=== PATIENT | male | born 1995 | race Caucasian/White ===

== ENCOUNTER 2021-11-12 03:12 | Day surgery (SDC) | payer BC, SELFPAY ==
[2021-11-12 03:15] VITALS: BP 131/89; PULSE 96; RESP 18; TEMP 37.4; O2SAT 96; BMI 22.1
--- NOTE | 2021-11-12 03:15 | W.ED.GENADLT ---
HPI - General Adult General: Chief complaint: General Medical Stated complaint: TONSILS BLEEDING Time Seen by Provider: 11/12/21 03:14 Source: patient and EMS Mode of arrival: EMS Limitations: no limitations History of Present Illness: 26-year-old male who had a tonsillectomy yesterday at noon states that tonight he woke up with bleeding. He states he is coughed up some blood and some bleeding from his mouth. He has some slight pain denies any worsening improving factors denies any vomiting. Associated symptoms: Deny chest pain, dyspnea, headache(s), nausea, rash or vomiting Review of Systems Const: Denies: fever(s), chills, body aches or change in appetite Eyes: Denies: blurry vision or eye discomfort ENMT: Denies: throat pain or dental pain Card: Denies: chest pain Resp: Denies: dyspnea GI: Denies: abdominal pain, nausea, vomiting or diarrhea : Denies: dysuria Musc: Denies: neck pain or back pain Skin/Breast: Denies: rash Neuro: Denies: headache(s) Psych: Denies: depression Antoine/Lymph: Denies: easy bruising All/Imm: Denies: urticaria Physical Exam Const: COMMON NORMALS: no acute distress, patient oriented x3 and healthy appearing HENMT: COMMON NORMALS: normocephalic and atraumatic HEAD & SCALP: normocephalic and atraumatic Eye: COMMON NORMALS: Equal, round and reactive pupils present and EOMs intact bilaterally PUPIL: Yes Equal, round and reactive pupils present Neck/C-Spine: COMMON NORMALS: full ROM and supple Chest: COMMONS NORMALS: normal inspection of the chest and normal palpation of entire chest wall Resp: COMMON NORMALS: normal respiratory effort, No retractions, No use of accessory muscles and clear to auscultation bilaterally AUSCULTATION: clear to auscultation bilaterally Cardio: COMMON NORMALS: regular rate, regular rhythm and No murmurs present (Cardio) RATE: regular rate RHYTHM: regular rhythm GI: COMMON NORMALS: Normal to inspection, nondistended, normoactive bowel sounds present, Soft to palpation, non-tender and no masses PALPATION: Yes Soft to palpation Extremity: COMMON NORMALS: normal to inspection and full ROM Neuro: COMMON NORMALS: patient oriented x3, moves all extremities and no focal motor deficits Psych: COMMON NORMALS: mental status grossly normal, Normal thought process present and cooperative THOUGHT PROCESS: Normal thought process present Skin: COMMON NORMALS: no rashes or lesions noted and no wounds GENERAL SKIN EXAM: no rashes or lesions noted Course Vital Signs: Vital signs: Vital Signs Temperature 99.3 F 11/12/21 03:15 Pulse Rate 96 11/12/21 03:15 Respiratory Rate 18 11/12/21 03:15 Blood Pressure 131/89 11/12/21 03:15 Pulse Oximetry 96 11/12/21 03:15 [facility] - General Adult Medical Decision Making Patient presents with post tonsillectomy hemorrhage patient is seen by Dr. Barrera in the ER and is going to come back to the OR at this time. He has been stable in the ER. Lab Data : 11/12/21 03:19 Laboratory Results WBC 15.5 10^3/uL (4.0-10.0) H 11/12/21 03:19 RBC 5.62 10^6/uL (4.1-5.3) H 11/12/21 03:19 Hgb 17.1 g/dL (11.7-16.6) H 11/12/21 03:19 Hct 47.5 % (42.0-52.0) 11/12/21 03:19 MCV 84.5 fl (80-94) 11/12/21 03:19 MCH 30.4 pg (28.0-34.0) 11/12/21 03:19 MCHC 36.0 g/dL (30.0-36.0) 11/12/21 03:19 RDW 11.8 % (12.1-15.1) L 11/12/21 03:19 Plt Count 264 10^3/cmm (130-400) 11/12/21 03:19 MPV 9.6 fL (7.4-10.4) 11/12/21 03:19 Neut % (Auto) 91.2 % 11/12/21 03:19 Lymph % (Auto) 5.4 % 11/12/21 03:19 [place] % (Auto) 2.7 % 11/12/21 03:19 Eos % (Auto) 0.1 % 11/12/21 03:19 Baso % (Auto) 0.2 % 11/12/21 03:19 Neut # (Auto) 14.12 10^3/uL (1.8-7.7) H 11/12/21 03:19 Lymph # (Auto) 0.8 10^3/uL (0.8-4.8) 11/12/21 03:19 [place] # (Auto) 0.4 10^3/uL (0.2-0.9) 11/12/21 03:19 Eos # (Auto) 0.0 10^3/uL (0.0-0.8) 11/12/21 03:19 Baso # (Auto) 0.0 10^3/uL (0.0-0.1) 11/12/21 03:19 Nucleated RBC % (auto) 0 % 11/12/21 03:19 Nucleated RBCs # 0.0 /100WBC 11/12/21 03:19 Discharge Plan Discharge Patient Disposition: Admitted As Inpatient Clinical Impression: Post-tonsillectomy hemorrhage Condition: Stable Coding Level of Care Code ED [employer] for Chg Fwd Exam Comprehensive
[2021-11-12 03:23] LABS: Basophils % 0.2 %; Eosinophils % 0.1 %; Hematocrit 47.5 % (42.0-52.0); Hemoglobin 17.1 g/dL (11.7-16.6); Lymphocytes # 0.8 10^3/uL (0.8-4.8); Lymphocytes % 5.4 %; Mean Corpuscular Hemoglobin 30.4 pg (28.0-34.0); Mean Corpuscular Volume 84.5 fl (80-94); Mean Platelet Volume 9.6 fL (7.4-10.4); Monocytes # 0.4 10^3/uL (0.2-0.9); Monocytes % 2.7 %; Neutrophils # 14.12 10^3/uL (1.8-7.7); Neutrophils % 91.2 %; Nucleated Red Blood Cells % 0 %; Platelet Count 264 10^3/cmm (130-400); Red Blood Count 5.62 10^6/uL (4.1-5.3); Red Cell Distribution Width 11.8 % (12.1-15.1); White Blood Count 15.5 10^3/uL (4.0-10.0)
--- NOTE | 2021-11-12 04:58 | P.CONIM_ITS ---
Providers/Reason For Consult Consulting Physician/Specialty*: Jacobo Barrera MD Otolaryngology, Head & Neck Surgery Reason for Consult*: Post tonsillectomy bleeding Requesting Physician: [facility] ER Attending Physician: Jacobo Barrera MD Primary Care Provider: Zheng Lundberg DO History of Present Illness History of Present Illness Louie Ferrera is a 26 year old male who is POD #1 s/p bilateral tonsillectomy who noted spontaneous oral bleeding this morning. The patient last ate last evening. He is o/w doing well. Review of Systems General: Reports: 10 or more systems reviewed and unremarkable except in HPI and below Medications/Allergies Allergies Allergy/AdvReac Type Severity Reaction Status Date / Time No Known Allergies Allergy Verified 11/12/21 03:20 Hydrocodone (7.5/325)/15mL Elixer Vitals/I&O/Wt Last Vital Signs Temp 99.3 F 11/12/21 03:15 Pulse 96 11/12/21 03:15 Resp 18 11/12/21 03:15 BP 131/89 11/12/21 03:15 Pulse Ox 96 11/12/21 03:15 Weight last 48 hrs Weight 68.039 kg Physical Exam Const: COMMON NORMALS: no acute distress and patient oriented x3 HENMT: COMMON NORMALS: normocephalic and atraumatic HEAD & SCALP: normocephalic and atraumatic MOUTH: Normal oral and palatal mucosa present and other (There is a clot in the inferior left tonsillar fossa) Eye: COMMON NORMALS: EOMs intact bilaterally and conjunctivae normal CONJUNCTIVA: Yes conjunctivae normal Neck/C-Spine: COMMON NORMALS: no lymphadenopathy Chest: COMMONS NORMALS: normal inspection of the chest Resp: COMMON NORMALS: normal respiratory effort Cardio: COMMON NORMALS: regular rate, regular rhythm and No murmurs present (Cardio) RATE: regular rate RHYTHM: regular rhythm GI: INSPECTION: Yes normal to inspection Extremity: COMMON NORMALS: normal to inspection Neuro: COMMON NORMALS: patient oriented x3 and CN's II-XII intact bilaterally Psych: COMMON NORMALS: mental status grossly normal Data : 11/12/21 03:19 A&P Assessment and plan (1) Post-tonsillectomy hemorrhage: Impression: 26 yo wm who is POD #1 s/p tonsillectomy with post tonsillectomy bleeding Plan: - NPO - To the OR for surgical control of post tonsillectomy bleeding - I was unable to control with [id number] - Risks and potential complications explained Status: Acute Consult Attestations Medical Necessity Statement: I was contacted to treat post tonsillectomy bleeding. Coding Level of Care Code Acute [employer] for Chg Fwd Diagnoses Post-tonsillectomy hemorrhage J95.830
--- NOTE | 2021-11-12 05:56 | ANES.PREANE2 ---
Pre-Anesthetic Assessment Height/Weight: Height 1.75 m Weight 68.039 kg Temp Pulse Resp BP Pulse Ox 99.3 F 96 18 131/89 96 11/12/21 03:15 11/12/21 03:15 11/12/21 03:15 11/12/21 03:15 11/12/21 03:15 Operation Date: 11/12/21 06:00 Proposed Procedures p Tonsillectomy Postop Bleed Control(Not Applicable) - Jacobo Barrera MD Familial anesthetic complications: None Was Beta Enoc taken within 24 hours: N/A Was Clonidine taken within 24 hours: N/A Last intake: full stomach (swallowing blood) Social No alcohol and No tobacco Exam alert, oriented x 3, clear to auscultation bilaterally and regular rate & rhythm Airway Submandibular: within normal limits Cervical ROM: within normal limits Mallampati: Class I Dentition: full History/ROS No significant complaints Pulmonary Tonsil rebleed CV/HEM None reported None reported Hepatic None reported GI None reported Metabolic None reported Musc/skel None reported Neuropsych None reported Anesthetic Plan ASA status: 1E Anesthesia: Anesthesia Evaluation and General Other: We discussed risk and benefits of general anesthesia including PONV, sore throat (sometimes severe), corneal abrasion, positioning and peripheral nerve injuries, life threatening allergic reaction, post operative ICU admission requiring prolonged intubation, stroke, heart attack, , and rare incidences of recall. Patient consents to proceed with general anesthesia. Risk of > 500 ml blood loss (7ml/kg in children): No Other Pertinent Information Late entry due to urgency of case. Patient seen and evaluated prior to surgery. Medications/Allergies Allergies Allergy/AdvReac Type Severity Reaction Status Date / Time No Known Allergies Allergy Verified 11/12/21 03:20 Data Anesthesia : 11/12/21 03:19 Short CBC 11/12/21 Range/Units 03:19 WBC 15.5 H (4.0-10.0) 10^3/uL Hgb 17.1 H (11.7-16.6) g/dL Hct 47.5 (42.0-52.0) % MCV 84.5 (80-94) fl Plt Count 264 (130-400) 10^3/cmm Neut % (Auto) 91.2 % Neut # (Auto) 14.12 H (1.8-7.7) 10^3/uL Cardiac Studies: No Data to Display
--- NOTE | 2021-11-12 06:16 | PM.OP ---
Operative Report Date of procedure: November 12, 2021 Pre-op diagnosis: Post tonsillectomy bleeding Post-op diagnosis: same Post-op findings: Left tonsillar fossa bleeding - midpole Procedure done: Surgical control of post tonsillectomy bleeding Implants: None Specimens removed/disposition: None Pathology: none sent Surgeon: Jacobo Barrera Anesthesia: General Estimated blood loss (mL): 25 IV fluids (mL): 700 Complications: None Findings: Left midpole tonsil bleeding Condition: stable Disposition: PACU Brief History: 26 yo wm who is POD #1 s/p bilateral tonsillectomy with new onset oral bleeding uncontrolled by conservative measures. Procedure: The patient was identified in the preoperative holding area and was taken to the operating where he was placed on the operating table in the supine position. Anesthesia was obtained with general endotracheal anesthesia and the table was then turned 90 degrees patient's left. A McIvor mouthgag was placed atraumatically in the patient's oral cavity and he was suspended in the Charity position. The patient's oral cavity was evacuated with suction and the patient was found to have a left midpole tonsil bleed. The tonsil bleeding was controlled with a combination of suture ligature and Coblation and bipolar cautery. Once this was accomplished, the patient's oral cavity was irrigated with copious amount of normal saline. The wounds were reinspected hemostasis which was found to be adequate. The stomach was then evacuated with an OG tube, and the procedure was terminated. Control of the patient was returned to anesthesia where he underwent an uneventful reversal of anesthesia and extubation and was taken to the recovery in stable condition. There were no operative or anesthetic complications
[2021-11-12 06:18] VITALS: BP 112/74; PULSE 107; RESP 18; TEMP 36.1; O2SAT 95
[2021-11-12 06:23] VITALS: BP 126/69; PULSE 97; RESP 18; O2SAT 96
[2021-11-12 06:27] VITALS: BP 123/68; PULSE 107; RESP 18; TEMP 36.7; O2SAT 96
[2021-11-12 06:31] VITALS: BP 111/73; PULSE 98; RESP 18; TEMP 37.1; O2SAT 98
--- NOTE | 2021-11-12 06:38 | ANE.PACU2 ---
Inpatient post-anesthesia follow up: Airway intact: Yes Vital signs: Temperature 98.8 F Pulse Rate 98 Respiratory Rate 18 Blood Pressure 111/73 Pulse Oximetry 98 Oxygen Delivery Me thod Room Air Oxygen Flow Rate Fraction of Inspir ed Oxygen Hydration adequate: Yes Nausea and vomiting: No Pain level: 3 Mental status: Baseline
[2021-11-12 06:55] VITALS: BP 123/83; PULSE 100; RESP 16; O2SAT 97
== END 2021-11-12 06:58 | disposition home or self-care (01) ==
LOC: ER 04:07 → OR 04:54
PROVIDERS: Emergency Provider Emergency Medicine; Visit Provider Specialist
PROC: (CPT 42960; principal; 2021-11-12 06:00)
DX: J95.830 Postprocedural hemorrhage of a respiratory system organ or structure following a respiratory system procedure (principal)
CPT/HCPCS: 42960; 12345; 85025; J0330; J1100; J2405; J2704; J3010; J3490